=== PATIENT | male | born 1980 | race Caucasian/White ===

== ENCOUNTER 2017-06-18 10:42 | Emergency (ER) | payer SELFPAY ==
[2017-06-18] MEDS ORDERED: NORMAL SALINE 1000 ML 1,000 ML IV ONE (10:56)
[2017-06-18] MEDS ORDERED: PANTOPRAZOLE SODIUM 40 MG VIAL IV ONE (10:57)
[2017-06-18] MEDS ORDERED: OXYMETAZOLINE HCL 0.05% NASAL SPRAY 15 ML BOTTLE NASL ONE (10:57)
[2017-06-18] MEDS ORDERED: LIDOCAINE 1%/EPINEPHRINE INJ 20 ML VIAL INJ ONE (10:57)
[2017-06-18] MEDS ORDERED: ONDANSETRON HCL INJ/PF 4 MG/2 ML SDV IV ONE (10:57)
--- NOTE | 2017-06-18 11:09 | ER Document Report ---
ED General - General Stated Complaint: VOMITING Time Seen by Provider: 06/18/17 10:44 - HPI Patient complains to provider of: Nosebleed vomiting Notes: Patient is a heavy alcohol user states last time he drank any alcohol was at 1 to 2:00 in the morning. Patient states nosebleed intermittently for the last 2- 3 days. Patient states started vomiting yesterday states he was vomiting blood was nose was bleeding. Patient also states he did pass some blood in stool. Patient otherwise denies any medical issues of her hypertension. Patient resting comfortably upon my evaluation has obvious dried blood coming out of the right nare. Past Medical History - Social History Smoking Status: Unknown if Ever Smoked Family History: Reviewed & Not Pertinent Review of Systems - Review of Systems Constitutional: No symptoms reported EENT: Other - Nosebleed Cardiovascular: No symptoms reported Respiratory: No symptoms reported Gastrointestinal: Nausea, Vomiting Genitourinary: No symptoms reported Male Genitourinary: No symptoms reported Musculoskeletal: No symptoms reported Skin: No symptoms reported Hematologic/Lymphatic: No symptoms reported Neurological/Psychological: No symptoms reported -: Yes All other systems reviewed and negative Physical Exam - Vital signs Vitals: Pulse Ox 95 06/18/17 10:59 Interpretation: Normal - General General appearance: Appears well, Alert - HEENT Head: Normocephalic, Atraumatic Eyes: Normal Conjunctiva: Normal Cornea: Normal Eyelashes: Normal Pupils: PERRL Nasal: Other - Slight oozing of the anterior nare on the right side with dry blood within the nose. Left unaffected no blood Pharynx: Other - No blood draining down the posterior pharynx. Neck: Normal - Respiratory Respiratory status: No respiratory distress Chest status: Nontender Breath sounds: Normal Chest palpation: Normal - Cardiovascular Rhythm: Regular Heart sounds: Normal auscultation Murmur: No - Abdominal Inspection: Normal Distension: No distension Bowel sounds: Normal Tenderness: Nontender Organomegaly: No organomegaly - Rectal Stool: Other - Light brown stool no melena no black stool Hemorrhoids: None Prostate: Normal - Back Back: Normal, Nontender - Extremities General upper extremity: Normal inspection, Nontender, Normal color, Normal ROM , Normal temperature General lower extremity: Normal inspection, Nontender, Normal color, Normal ROM , Normal temperature, Normal weight bearing. No: Jacqueline's sign - Neurological Neuro grossly intact: Yes Cognition: Normal Orientation: AAOx4 [place] Coma Scale Eye Opening: Spontaneous [place] Coma Scale Verbal: Oriented [place] Coma Scale Motor: Obeys Commands [place] Coma Scale Total: 15 Speech: Normal Motor strength normal: LUE, RUE, LLE, RLE Sensory: Normal - Psychological Associated symptoms: Normal affect, Normal mood - Skin Skin Temperature: Warm Skin Moisture: Dry Skin Color: Normal Course - Re-evaluation Re-evalutation: 06/18/17 14:01 Patient examination shows epistaxis. No active epistaxis upon my evaluation. The patient's history of nosebleeds over the last few days I do believe he is vomiting blood is going on the posterior pharynx also now passing blood that he originally swallowed. I do not believe the patient has any significant etiology at this time no no esophageal varices no GI bleed. Hemoccult card did return positive however again light brown stool on examination. No dark stool no melena patient's hemoglobin stable heart rate did improve with IV fluids. Explained to the patient that he would need to drink more water. Patient was given a nasal clip for home. Again no active bleeding upon discharge. - Vital Signs Vital signs: Temp Pulse Resp BP Pulse Ox 98.5 F 19 151/117 H 100 06/18/17 12:47 06/18/17 12:47 06/18/17 12:47 06/18/17 12:47 - Laboratory Result Diagrams: 06/18/17 11:08 06/18/17 11:08 Laboratory results interpreted by me: 06/18/17 06/18/17 11:08 11:08 RBC 3.80 L MCV 106 H MCH 36.8 H Plt Count 146 L Seg Neutrophils % 84.9 H Lymphocytes % 6.2 L Absolute Neutrophils 8.6 H AST 115 H ALT 77 H Alkaline Phosphatase 138 H Discharge - Discharge Clinical Impression: Bleeding nose Vomiting Qualifiers: Vomiting type: unspecified Vomiting Intractability: unspecified Nausea presence : unspecified Qualified Code(s): R11.10 - Vomiting, unspecified Condition: Good Instructions: Nosebleed Instructions ([facility]), Vomiting ([facility]) Additional Instructions: Your nose is bleeding more likely due to the area dry and the lining of the nose being dry as well cracking and bleeding. You can aid with her symptoms by placing Vaseline within your nose. He may also use a humidifier in her house. If your nose starts bleeding again please apply direct pressure for approximately 30 minutes he may also use the Afrin and may place a small roll of tissue paper in your nose and applied a nasal clip that I gave you here in the ER. If your nose is still bleeding I would recommend another 30 minutes prior to returning to the ER. Follow-up with your primary care physician. Highly recommend that she stop drinking alcohol please taper your alcohol consumption. Make sure that you are drinking plenty of water. More likely your vomiting due to the swallowing of the blood from the nose. He may take the Zofran as prescribed. Prescriptions: Ondansetron [Zofran Odt 4 mg Tablet] 1 - 2 tab PO Q4H PRN #15 tab.rapdis PRN Reason: For Nausea/Vomiting Forms: Return to Work
[2017-06-18 11:26] LABS: ABSOLUTE LYMPHOCYTES (AUTO) 0.6 10^3/uL (0.5-4.7); ABSOLUTE MONOCYTES (AUTO) 0.8 10^3/uL (0.1-1.4); ABSOLUTE NEUT (AUTO) 8.6 10^3/uL (1.7-8.2); BASOPHILS % (AUTO) 0.4 % (0-2); EOSINOPHILS % (AUTO) 0.2 % (0-6); HEMATOCRIT 40.2 % (37.9-51.0); LYMPHOCYTES % (AUTO) 6.2 % (13-45); MEAN CORPUSCULAR HEMOGLOBIN 36.8 pg (27.0-33.4); MEAN CORPUSCULAR HGB CONC 34.8 g/dL (32.0-36.0); MEAN CORPUSCULAR VOLUME 106 fl (80-97); MONOCYTES % (AUTO) 8.3 % (3-13); PLATELET COUNT 146 10^3/uL (150-450); SEGMENTED NEUTROPHILS % (AUTO) 84.9 % (42-78); TOTAL CELLS COUNTED % (AUTO) 100 %; WHITE BLOOD COUNT 10.1 10^3/uL (4.0-10.5)
[2017-06-18 11:31] LABS: PARTIAL THROMBOPLASTIN TIME 30.9 SEC (23.5-35.8); PROTHROMBIN TIME 12.8 SEC (11.4-15.4)
[2017-06-18 11:43] LABS: ALANINE AMINOTRANSFERASE 77 U/L (21-72); ALBUMIN 4.4 g/dL (3.5-5.0); ALKALINE PHOSPHATASE 138 U/L (38-126); ANION GAP 15 (5-19); ASPARTATE AMINO TRANSFERASE 115 U/L (17-59); BILIRUBIN,DIRECT 0.4 mg/dL (0.0-0.4); BILIRUBIN,TOTAL 0.8 mg/dL (0.2-1.3); BLOOD UREA NITROGEN 12 mg/dL (7-20); CALCIUM 9.9 mg/dL (8.4-10.2); CARBON DIOXIDE 23 mmol/L (22-30); CHLORIDE 103 mmol/L (98-107); GLUCOSE 110 mg/dL (75-110); POTASSIUM 3.7 mmol/L (3.6-5.0); SODIUM 140.7 mmol/L (137-145)
[2017-06-18 11:44] LABS: ALCOHOL < 10 mg/dL (NONE DETECTED)
[2017-06-18] MEDS ORDERED: ONDANSETRON ODT 4 MG TAB (6 TAB/ER DISP) PO PRN (12:33)
[2017-06-18 12:50] VITALS: BP 151/117
== END 2017-06-18 12:58 | disposition home or self-care (01) ==
LOC: ER 10:42
DX: R04.0 Epistaxis (principal); R11.2 Nausea with vomiting, unspecified; I10 Essential (primary) hypertension
CPT/HCPCS: 99283; 96361; 96374; 96375; 86900; 86901; 36415; 86850; 80307; 83605; 85025; 85610; 85730; 82272; 80053; J3490 ×2; S0164; J2405; J7030